=== PATIENT | male | born 1980 | race Hispanic/Latino ===

== ENCOUNTER 2018-08-08 10:40 | Emergency (ER) | payer OTHER | END 2018-08-08 11:18 | disposition home or self-care (01) | LOC: EDH 10:40 | DX: R05 Cough (principal); R09.81 Nasal congestion | CPT/HCPCS: 99281 ==

== ENCOUNTER 2020-02-11 09:41 | Emergency (ER) | payer SELFPAY | END 2020-02-11 10:58 | disposition home or self-care (01) | LOC: EDH 09:41 | DX: B86 Scabies (principal); Z72.0 Tobacco use ==

== ENCOUNTER 2023-03-01 21:24 | Emergency (ER) | payer BC ==
[~2023-03-01] VITALS: Ht 167.6 cm; Wt 79.4 kg
[2023-03-01 21:45] LABS: BASOPHILS % (AUTO) 0.2 % (0.0-5.0); EOSINOPHILS % (AUTO) 0.2 % (0.0-8.0); HEMATOCRIT 47.3 % (42-54); LYMPHOCYTES % (AUTO) 89.6 % (21.0-51.0); MEAN CORPUSCULAR HEMOGLOBIN 29.1 pg (27.0-33.0); MEAN CORPUSCULAR HGB CONC 32.1 g/dL (32.0-36.0); MEAN CORPUSCULAR VOLUME 90.4 fL (79-99); MONOCYTES % (AUTO) 1.9 % (3.0-13.0); NEUTROPHILS % (AUTO) 7.9 % (40.0-77.0); PLATELET COUNT (AUTO) 177 K/uL (130-400); RED BLOOD CELL COUNT(AUTO) 5.23 MIL/uL (4.50-6.20); RED CELL DISTRIBUTION WIDTH 13.3 % (11.0-15.5)
[2023-03-01 21:52] LABS: WHITE BLOOD COUNT (AUTO) 83.4 K/uL (4.8-10.8)
[2023-03-01 22:07] LABS: ALBUMIN 4.1 g/dL (3.5-5.0); CREATININE 1.1 mg/dL (0.5-1.5); POTASSIUM 3.9 mmol/L (3.5-5.1); TOTAL PROTEIN, SERUM 8.1 g/dL (6.0-8.3)
[2023-03-01 22:14] LABS: LYMPHOCYTES % (MANUAL) 70 % (22-44); MONOCYTES % (MANUAL) 1 % (2-9); OTHER CELLS,MANUAL % 16 (0-0); REACTIVE LYMPHOCYTES 2 % (0-0); SEGMENTED NEUTROPHILS % 11 % (40-70)
[2023-03-01 22:15] LABS: MAN.DIFF COMMENT-IMPRESSION MANUAL DIFFERENTIAL
[2023-03-01 22:16] LABS: PLATELET MORPHOLOGY COMMENT ADEQUATE
[2023-03-01] MEDS ORDERED: KETOROLAC 30MG VIAL (30MG/ML) IVP ONE (22:30)
[2023-03-01 23:02] LABS: APPEARANCE,URINE CLEAR (CLEAR); BACTERIA,URINE RARE /HPF (None Seen); BILIRUBIN,URINE NEGATIVE (NEGATIVE); COLOR,URINE YELLOW (YELLOW); GLUCOSE, URINE (UA) NEGATIVE (NEGATIVE); KETONES,URINE NEGATIVE (NEGATIVE); LEUKOCYTE ESTERASE ,URINE NEGATIVE Leu/uL (NEGATIVE); MUCUS,URINE MANY LPF (None Seen); NITRATE,URINE NEGATIVE (NEGATIVE); PH,URINE 5.5 (5.0-8.0); PROTEIN,URINE 20 mg/dL (NEGATIVE); SQUAMOUS EPITHELIAL CELL,UR RARE /HPF (0-2); UROBILINOGEN,URINE 0.2 mg/dL (0.2-1.0)
[2023-03-01 23:03] LABS: AMPHET/METH SCREEN,URINE NEGATIVE (NEGATIVE); BARBITURATE SCREEN, URINE NEGATIVE (NEGATIVE); BENZODIAZEPINES SCREEN,URINE NEGATIVE (NEGATIVE); CANNABINOID SCREEN,URINE NEGATIVE (NEGATIVE); COCAINE SCREEN,URINE NEGATIVE (NEGATIVE); OPIATE SCREEN,URINE NEGATIVE (NEGATIVE); PHENCYCLIDINE SCREEN,URINE NEGATIVE (NEGATIVE)
[2023-03-01 23:23] VITALS: BP 118/78
== END 2023-03-01 23:25 | disposition home or self-care (01) ==
LOC: EDH 21:25
DX: R07.89 Other chest pain (principal); Z98.890 Other specified postprocedural states
CPT/HCPCS: 99285; 96374; 71045; 84484; 80053; 80305; 85025; 36415; 93005; 81001; 85007; J1885